=== PATIENT | male | born 1990 | race African-American/Black ===

== ENCOUNTER 2020-01-30 10:01 | Emergency (ER) | payer OTHER, SELFPAY ==
[2020-01-30] VITALS (31 sets, daily range): BP systolic 92–145; BP diastolic 41–83; PULSE 88–108; RESP 12–20; TEMP 37.7–38.3; O2SAT 92–100
--- NOTE | ~2020-01-30 | CT_ITS ---
EXAMINATION: CT abdomen pelvis w con EXAM DATE: 01/30/2020 13:39 INDICATION: Abdominal pain, nausea, history of diabetes. TECHNIQUE: Spiral CT of the abdomen and pelvis was performed following intravenous injection of 100 m L Omnipaque 350. Axial, coronal and sagittal images were reviewed. The dose-length product (DLP) fo r this examination was 1485.81 mGy-cm. The exposure was tailored according to patient size (auto mA exposure control), and iterative reconstruction (ASIR) was used as additional dose reduction techniqu e. There is no prior study for comparison. FINDINGS: The liver, spleen, adrenal glands and pancreas are unremarkable. Gallbladder is unremarkab le. No biliary obstruction. Portal and splenic veins are patent. Kidneys enhance symmetrically. T here is no hydronephrosis. The prostate is unremarkable. The bladder is distended but otherwise un remarkable. There is no retroperitoneal or pelvic lymphadenopathy. The appendix is normal. The stomach and small bowel are unremarkable. There is expected amount of c olonic stool. No free intraperitoneal gas. The heart is normal in size. There are no pericardial or pleural effusions. There are patchy basilar peripheral opacities, could be early acute lung inju ry from SARS-CoV-2. Other infectious etiology also possible. The bones are unremarkable. IMPRESSION: 1. Patchy bibasilar opacities likely acute infectious process, possible COVID-19. 2. No acute intra-abdominal findings. Reviewed, dictated and finalized at location A. [facility] IMPRESSION: 1. Patchy bibasilar opacities likely acute infectious process, possible COVID- 19. 2. No acute intra-abdominal findings.
--- NOTE | ~2020-01-30 | XR_ITS ---
EXAMINATION: XR chest 1V portable DATE: 01/30/2020 10:52 INDICATION: Chest pain with numbness in the right arm and prominent the left hand. Diabetic ketoacido sis. TECHNIQUE: frontal view of the chest was obtained. COMPARISON: None FINDINGS: No focal airspace opacities, pulmonary edema, pleural effusion or pneumothorax. The cardiomediastinal silhouette is normal. Visualized bones and soft tissues are unremarkable. IMPRESSION: 1. No acute cardiopulmonary disease. Reviewed, dictated and finalized at location A. [employer] [facility]
[2020-01-30 10:17] LABS: Glucose Point of Care 243 (65-105)
--- NOTE | 2020-01-30 10:22 | ED.ABDPAIN ---
HPI - Abdominal Pain General Chief Complaint: Abdominal Pain Stated Complaint: N/V ELEVATED BLD SUGAR Time Seen by Provider: 01/30/20 10:03 Source: patient Mode of arrival: ambulatory Limitations: no limitations History of Present Illness HPI narrative: Patient is a 29-year-old male who presents to emergency department with nausea and vomiting that began last night multiple episodes with tenderness of the upper abdomen patient history of diabetes mellitus did take insulin today denies any URI symptoms or urinary symptoms presents in no distress does not appear uncomfortable and now notes continued nausea with aching pain in the upper quadrants of the abdomen does present with fever. Patient notes that he did recently start Lyrica and was unsure as to whether or not this may be a cause of his symptoms Related Data Allergies Allergy/AdvReac Type Severity Reaction Status Date / Time No Known Allergies Allergy Mild Verified 03/19/17 12:49 Review of Systems Review of Systems: All systems reviewed & are unremarkable except as noted in HPI and below PMFSH Past Medical History Medical History (Updated 01/30/20 @ 14:05 by Richard Medina PA-C) Diabetes mellitus Social History Social History (Updated 01/30/20 @ 10:23 by Richard Medina PA-C) Smoking status: Never smoker Exam Narrative: Exam Narrative: GENERAL: Well-appearing, well-nourished, and in no acute distress. HEAD: Normocephalic, atraumatic. EYES: PERRLA and EOMI. ENT: Nares clear, no rhinorrhea or epistaxis. Mucous membranes moist. Oropharynx without tonsillar hypertrophy exudate or other lesions. Bilateral TMs pearly bro nonbulging NECK: Supple. No adenopathy or masses. CHEST: Clear to auscultation. No respiratory distress. No wheezes rales or rhonchi HEART: Regular rate and rhythm. No murmur heard. Normal peripheral pulses. ABDOMEN: Soft, tenderness of the upper quadrants of the abdomen, nondistended EXTREMITIES: Normal range of motion. No edema. SKIN: Warm, dry, no rash. NEURO: No focal deficits. Alert and oriented x3. PSYCH: Normal mood and affect. Course Course Emergency Course: Patient hydrated the emergency department feeling better at this time has had 3 L of fluid patient with likely Covid given the CT findings patient at this time felt appropriate for discharge from the ER advised to follow with his primary care to get his Covid results and to set up for reevaluation patient is feeling much better at this time is nontoxic-appearing without emesis no hypoxemia seen on exam Vital Signs Vital signs: Vital Signs Temperature 101.0 F H 01/30/20 10:11 Pulse Rate 108 H 01/30/20 10:11 Respiratory Rate 20 01/30/20 10:11 Blood Pressure 112/74 01/30/20 10:11 Pulse Oximetry 97 01/30/20 10:11 Temperature 99.8 F H 01/30/20 12:23 Pulse Rate 90 01/30/20 13:01 Respiratory Rate 20 01/30/20 13:01 Blood Pressure 129/73 01/30/20 13:01 Pulse Oximetry 96 01/30/20 13:01 MDM - Abdominal Pain Lab Data Result diagrams: 01/30/20 10:21 01/30/20 10:21 Labs: Lab Results 01/30/20 01/30/20 01/30/20 Range/Units 10:08 10:17 10:21 WBC 5.0 (4.5-10.0) K/mm3 RBC 6.01 (4.6-6.20) M/mm3 Hgb 15.4 (14.0-18.0) g/dL Hct 46.7 (42.0-52.0) % MCV 77.7 L (80-100) fl MCH 25.6 L (26-34) pg MCHC 33.0 (32-36) g/dl RDW 12.6 (11.5-14.5) % Plt Count 187 (150-375) k/mm3 MPV 12.5 H (7.4-10.4) fl Immature Gran % (Auto) 0.4 (0-0.5) % Neut % (Auto) 76.5 H (45.5-73.1) % Lymph % (Auto) 15.1 L (18.3-44.2) % [place] % (Auto) 7.6 (2.6-8.5) % Eos % (Auto) 0.0 (0-4.4) % Baso % (Auto) 0.4 (0.2-1.2) % Lymph # (Auto) 0.75 L (0.9-3.2) K/mm3 [place] # (Auto) 0.4 (0.1-0.6) K/mm3 Eos # (Auto) 0.0 (0-0.3) K/mm3 Baso # (Auto) 0.0 (0.0-0.1) K/mm3 Abs Immat Gran (auto) 0.02 (0.00-0.031) K/mm3 Absolute Neuts (auto) 3.8 (1.3-6.7) K/mm3 Ab
[2020-01-30] MEDS: SODIUM CHLORIDE 0.9% IV 1,000 ML 999 ML IV CONT (10:23)
[2020-01-30] MEDS: FAMOTIDINE 20 MG/2 ML VIAL IV PUSH (10:23)
[2020-01-30] MEDS: ONDANSETRON INJ 4 MG/2 ML VIAL IV PUSH (10:23)
[2020-01-30 10:34] LABS: Alveolar/Arterial O2 Gradient 30.4 mmHg; Base Excess ABG 1.5 mEq/l (+/-2.0); Carboxyhemoglobin 0.3 % THb (0-2.0); Device ROOM AIR; Fractional Inspired Oxygen 21 %; Methemoglobin ABG 0.2 %THb (0-1.5); Modified Allen's Test Pass; Oxygen Content ABG 21.3 %vol (16.0-22.0); Oxygen Saturation ABG 94.5 % (95.0-100.0); Oxyhemoglobin 94.1 % THb (90.0-100.0); PCO2 ABG 40.7 mmHg (35.0-45.0); PO2 ABG 70.6 mmHg (80.0-100.0); PO2 FiO2 Ratio Arterial Blood 3.36 %; Reduced Hemoglobin 5.4 %THb (0-5.0); Site Drawn RIGHT RADIAL; Total Hemoglobin 16.1 g/dL (12.0-18.0); pH ABG 7.423 (7.350-7.450)
[2020-01-30 10:38] LABS: Basophils Percent Auto 0.4 % (0.2-1.2); Hematocrit 46.7 % (42.0-52.0); Hemoglobin 15.4 g/dL (14.0-18.0); Immature Granulocyte Absolute 0.02 K/mm3 (0.00-0.031); Immature Granulocyte Percent A 0.4 % (0-0.5); Lymphocytes Absolute Auto 0.75 K/mm3 (0.9-3.2); Lymphocytes Percent Auto 15.1 % (18.3-44.2); Mean Corpuscular Hemoglobin 25.6 pg (26-34); Mean Corpuscular Volume 77.7 fl (80-100); Mean Platelet Volume 12.5 fl (7.4-10.4); Monocytes Absolute Auto 0.4 K/mm3 (0.1-0.6); Monocytes Percent Auto 7.6 % (2.6-8.5); Neutrophils Absolute Auto 3.8 K/mm3 (1.3-6.7); Neutrophils Percent Auto 76.5 % (45.5-73.1); Platelet Count Result 187 k/mm3 (150-375); Red Blood Count 6.01 M/mm3 (4.6-6.20); Red Cell Distribution Width 12.6 % (11.5-14.5)
[2020-01-30 10:52] LABS: Alanine Aminotransferase 22 U/L (4-50); Albumin Level 3.9 g/dL (3.5-5.1); Alkaline Phosphatase 90 U/L (38-126); Anion Gap 6 mmol/L (8-16); Aspartate Amino Transferase 28 U/L (17-59); Bilirubin,Total 0.6 mg/dL (0.2-1.3); Blood Urea Nitrogen 10 mg/dL (9-20); Calcium 8.5 mg/dL (8.4-10.2); Carbon Dioxide 29 mmol/L (22-30); Chloride 98 mmol/L (98-107); Estimated CRCL calculation 183 ml/min; Estimated Glomerular Filt Rate > 60; Glucose 244 mg/dL (75-110); Magnesium 1.8 mg/dL (1.6-2.3); Phosphorus 3.4 mg/dL (2.5-4.5); Potassium 4.2 mmol/L (3.4-5.0); Sodium 133 mmol/L (137-145)
[2020-01-30 10:54] LABS: Beta-Hydroxybutyrate/Acetoacetate 0.46 mmol/L (0.02-0.27)
[2020-01-30 11:26] LABS: Add Urine Microscopic? YES; Appearance Urine Clear (Clear); Bilirubin Urine Negative (Negative); Blood Urine Negative (Negative); Color Urine Yellow (Yellow); Glucose Urine UA 3+ mg/dL (Negative); Ketones Urine 1+ mg/dL (Negative); Leukocyte Esterase Ur Negative LEU/UL (Negative); Nitrate Urine Negative (Negative); Protein Urine 2+ mg/dL (Negative); Urobilinogen Urine Negative mg/dL (<2.0); WBC Urine 0-3 /hpf
[2020-01-30 11:29] LABS: Specific Grav Ur 1.037 (1.001-1.035)
[2020-01-30] MEDS: LACTATED RINGERS 1,000 ML 999 ML IV CONT ×2 (11:29→13:19)
--- NOTE | 2020-01-30 14:06 | PC.NURSE ---
called Monica linda, added on Lip [id number]
[2020-01-30 14:15] LABS: Lipase 49 U/L (23-300)
[2020-01-31 14:56] LABS: SARS-CoV-2 RNA PCR Positive
== END 2020-01-30 14:49 | disposition home or self-care (01) ==
PROVIDERS: Emergency Medicine Emergency Medical Services; Emergency Provider Emergency Medicine; PCP Internal Medicine Gastroenterology
DX: U07.1 COVID-19 (principal); E11.9 Type 2 diabetes mellitus without complications
CPT/HCPCS: 36415; 36600; 71045; 74177; 80053; 81001; 82010; 82375; 82805; 82948; 83050; 83690; 83735; 84100; 85025; 87635; 96361; 96374; 96375; 99284; C9803; J0131; J2405; J7030; J7120; Q9967; U0003